=== PATIENT | male | born 1995 | race Caucasian/White ===

== ENCOUNTER 2016-12-24 19:22 | Emergency (ER) | payer BC ==
--- NOTE | 2016-12-24 21:01 | RAD ---
Indication: Left clavicle injury. 2 views of left clavicle demonstrates no fracture. No other bone or joint identified. IMPRESSION: No fracture of the left clavicle.
--- NOTE | 2016-12-24 21:02 | RAD ---
Indication: Left shoulder injury. 4 views of left shoulder demonstrates anterior inferior dislocation of left humeral head. IMPRESSION: Anterior inferior dislocation of left humeral head.
[2016-12-24] MEDS ORDERED: Midazolam concentrated* 5 MG/ML 1 ml VIAL ONE (21:06)
[2016-12-24] MEDS ORDERED: fentaNYL* 50 MCG/ML 2 ML VIAL (100 MCG VIAL) ONE (21:06)
[2016-12-24] MEDS ORDERED: Flumazenil* 0.1 MG/ML 5 ML MDV ONE (21:07)
[2016-12-24] MEDS ORDERED: fentaNYL* 50 MCG/ML 2 ML VIAL (100 MCG VIAL) IV SLOW PU ONE (21:09)
[2016-12-24] MEDS ORDERED: Midazolam* 1 MG/ML 10 ML VIAL (10 MG) IV ONE (21:11)
[2016-12-24] MEDS ORDERED: Midazolam* 1 MG/ML 10 ML VIAL (10 MG) ONE (21:13)
[2016-12-24] MEDS ORDERED: Naloxone* 0.4 MG/ML 1 ML VIAL ONE ×2 (21:13→21:15)
[2016-12-24] MEDS ORDERED: fentaNYL* 50 MCG/ML 5 ML VIAL (250 MCG VIAL) ONE (21:15)
--- NOTE | 2016-12-24 22:19 | ED ---
Upper Extremity Pain - HPI Summary HPI Summary: 21 male presents to ED with complaints of left shoulder pain, injury and deformity. States he thinks it is dislocated. Sustained when playing flag football and being ran into/tackled just [employer], today. Patient has not taken anything for pain. Admits to some numbness/tingling. No other injuries or complaints at this time. Has never injured shoulder in the past. No PMHx. - History of Current Complaint Chief Complaint: EDExtremityUpper Stated Complaint: LT SHOULDER INJURY Time Seen by Provider: 12/24/16 20:33 Hx Obtained From: Patient Mechanism Of Injury: Blunt Trauma, Twisted Onset/Duration: Started Hours Ago, Traumatic, Still Present, Worse Since Timing: Constant Severity Initially: Severe Severity Currently: Severe Pain Location: Shoulder - left Character: Sharp, Aching Aggravating Factor(s): Movement Alleviating Factor(s): Nothing, Rest Associated Signs & Symptoms: Positive: Numbness/Tingling, Other - obvious deformity Related History: Dominant Hand Right - Allergies/Home Medications Allergies/Adverse Reactions: Allergies Allergy/AdvReac Type Severity Reaction Status Date / Time No Known Allergies Allergy Verified 12/24/16 19:49 Home Medications: Home Medications NK [No Home Medications Reported] 12/24/16 [History Confirmed 12/24/16] PMH/Surg Hx/FS Hx/Imm Hx Endocrine/Hematology History: Denies: Hx Diabetes Cardiovascular History: Denies: Hx Hypertension Respiratory History: Denies: Hx Asthma - Surgical History Surgery Procedure, Year, and Place: none - Immunization History Immunizations Up to Date: Yes Infectious Disease History: No Infectious Disease History: Denies: Traveled Outside the [place] in Last 30 Days - Family History Known Family History: Positive: None - Social History Alcohol Use: Weekly Substance Use Type: Reports: None Smoking Status (MU): Never Smoked Tobacco Review of Systems Constitutional: Negative Cardiovascular: Negative Respiratory: Negative Positive: Arthralgia, Myalgia, Decreased ROM - left shoulder Skin: Negative Positive: Paresthesia All Other Systems Reviewed And Are Negative: Yes Physical Exam Triage Information Reviewed: Yes Vital Signs On Initial Exam: Initial Vitals Temp Pulse Resp BP Pulse Ox 98.7 F 84 18 155/84 95 12/24/16 19:28 12/24/16 19:28 12/24/16 19:28 12/24/16 19:28 12/24/16 19:28 slightly elevated BP however patient in significant pain, decreased throughout stay after procedure Vital Signs Reviewed: Yes Appearance: Positive: Well-Appearing, Well-Nourished, Pain Distress - severe Skin: Positive: Warm, Skin Color Reflects Adequate Perfusion, Dry, Cold - slightly colder left hand when compared to right, Pale - left hand however strong radial pulse, Other - no significant sweling or ecchymosis noted. obvious deformity left shoulder. Negative: Erythema @ Head/Face: Positive: Normal Head/Face Inspection Eyes: Positive: Conjunctiva Clear ENT: Positive: Normal ENT inspection, Hearing grossly normal, Pharynx normal, TMs normal Neck: Positive: Supple, Nontender Respiratory/Lung Sounds: Positive: Clear to Auscultation, Breath Sounds Present. Negative: Rales, Rhonchi, Wheezes Cardiovascular: Positive: Normal, RRR, Pulses are Symmetrical in both Upper and Lower Extremities - 2+ radial, b/l, normal cap refill. Negative: Murmur, Rub Abdomen Description: Positive: Nontender, Soft Bowel Sounds: Positive: Present Musculoskeletal: Positive: Limited @ - left UE, Interruption @ - left shoulder, Abnormal @ - left shoulder, Pain @, Other - obvious deformity, dislocation left shoulder, pain on palpation of left distal clavicle. Negative: Edema Left Neurological: Positive: Normal, Sensory/Motor Intact, Alert, Oriented to Person Place, Time, CN Intact II-III, Reflexes Intact, NV Bundle Intact Distally, Normal Gait - [place] Coma Scale Coma Scale Total: 15 Procedures - Joint Reduction Joint Reduction Site: shoulder (L) Conscious Sedation: Yes Reduction Attempts: 1 - by Dr Contreras Pre-Procedure NV Exam: Yes Post Joint Reduction Film: no fracture seen Diagnostics - Vital Signs Vital Signs Temp Pulse Resp BP Pulse Ox 12/24/16 22:00 100 19 100 12/24/16 21:55 140 16 134/58 81 12/24/16 21:50 91 18 100 12/24/16 21:45 92 19 133/69 100 12/24/16 21:40 98 20 133/67 100 12/24/16 21:35 93 14 128/66 98 12/24/16 21:30 99 20 135/76 100 12/24/16 21:26 16 12/24/16 21:25 95 19 137/66 100 10/16/17 21:24 94 23 134/76 100 12/24/16 21:17 97 100 12/24/16 21:15 140/48 12/24/16 19:35 99 F 91 19 127/63 100 12/24/16 19:28 98.7 F 84 18 155/84 95 - Laboratory Lab Statement: Any lab studies that have been ordered have been reviewed, and results considered in the medical decision making process. - Radiology left shoulder Xray Interpretation: Positive (See Comments) - anterior inferior dislocation of left humeral head left clavicle Xray Interpretation: No Acute Changes - no fracture of clavicle is seen Radiology Interpretation Completed By: Radiologist post reduction left shoulder Xray Interpretation: Positive (See Comments) - status post external reduction. bones are normal aligmnment, this is a hill-sachs fracture present Radiology Interpretation Completed By: Radiologist Course/Dx - Course Course Of Treatment: xrays obtained showing dislocation of left shoulder. Dr Contreras orthopedist 9:30pm preformed mild conscious sedation and reduction of left shoulder without complication. Reduced, post reduction xray obtained and showed successful reduction however hill-sachs fracture was noted. patient was placed in sling. observed after sedation. normal vitals throughout procedure. Pain medication at home, follow up with Emery tomorrow. Aware of worsening signs and symptoms to watch out for, return if occur. Rest and no physical activity/use of left shoulder. Patient agrees and understands plan. Tolerated procedure well. - Diagnoses Provider Diagnoses: Dislocation of left shoulder joint, Hill-Sachs fracture of left humerus - Physician Notifications Discussed Care of Patient With: Dr Contreras Time Discussed With Above Provider: 21:30 Instructed by Provider To: MD Will See In ED - and follow up call for appointment Discharge - Discharge Plan Condition: Stable Disposition: HOME Patient Education Materials: Shoulder Dislocation (ED) [facility] - Jill Land MD [Medical Doctor] - Additional Instructions: Keep shoulder resting in sling. Take Advil for pain and inflammation. Ice. Do not participate in physical activity until cleared by ortho. Follow up with Ortho, call and make an appointment. Any new or worsening signs/symptoms please seek medical attention promptly.
[2016-12-24 23:03] VITALS: BP 147/72
--- NOTE | 2016-12-25 02:30 | CONS ---
CONSULTATION REPORT: DATE OF CONSULT: 12/24/16 - EMERGENCY DEPT CONSULTING SERVICE: Orthopedics. REQUESTING SERVICE: ER. CHIEF COMPLAINT: Left shoulder pain. HISTORY OF PRESENT ILLNESS: Valeriano is a healthy 21-year-old right hand dominant senior at [employer]. He was playing flag football this afternoon when his left arm got extended backwards and externally rotated. He immediately had left shoulder pain and was brought into the emergency room. Denies any other injuries. Does note some tingling in his left hand. PAST MEDICAL HISTORY: Denies. PAST SURGICAL HISTORY: Denies. MEDICATIONS: No medications. ALLERGIES: No known drug allergies. PHYSICAL EXAM: He is well appearing and in no apparent distress. Nonlabored breathing. Normal mood and affect. Examination of the left upper extremity reveals skin is intact. No tenderness to palpation along the clavicle or the AC joint. Tenderness to palpation at the glenohumeral joint and obvious deformity. Sensation is intact to light touch in the axillary, radial, median, and ulnar nerve distributions, although he does have a bit of tingling in his fingertips. Palpable radial pulse. Positive EPL, OP and first NI. Painless range of motion of his elbow and wrist. IMAGING: Left shoulder x-rays reveal an anterior and inferior glenohumeral dislocation. No fractures are appreciated about the clavicle or shoulder. ASSESSMENT AND PLAN: Valeriano is a healthy 21-year-old right hand dominant male with a left shoulder glenohumeral joint dislocation. This is a first-time dislocation. I discussed the diagnosis and treatment options with him and after having this discussion, he decided he would like to move forward with a closed reduction. I explained the risks and benefits to him and received his informed written consent. Conscious sedation was provided by the emergency room and I close reduced the left glenohumeral joint with axial traction countertraction. There was a palpable clunk and relief of his pain. Afterwards , he was neurovascularly intact and had improved sensation in the fingertips as well as being intact in the axillary nerve, radial, median, and ulnar nerves. Post-reduction x-rays will be obtained. He was placed into a sling and will remain in that until he follows up with one of my colleagues in Sports Medicine in the next 1 to 2 weeks. All of his questions were answered. [id number]/[facility] #: [id number] [facility]
--- NOTE | 2016-12-25 07:12 | RAD ---
INDICATION: Left shoulder dislocation. COMPARISON: Comparison is made with a prior x-ray study of the left shoulder of the same day. TECHNIQUE: 3 views of the left shoulder were obtained. FINDINGS: The patient is status post external reduction of the left shoulder. The bones are in normal alignment. There is a Hill-Sachs fracture present. No additional fracture is seen. Joint spaces appear maintained. IMPRESSION: STATUS POST EXTERNAL REDUCTION. THE BONES ARE NORMAL ALIGNMENT. THERE IS A HILL-SACHS FRACTURE PRESENT.
== END 2016-12-24 22:55 | disposition home or self-care (01) ==
LOC: ED 19:22
DX: S43.015A Anterior dislocation of left humerus, initial encounter (principal); S42.292A Other displaced fracture of upper end of left humerus, initial encounter for closed fracture; W50.0XXA Accidental hit or strike by another person, initial encounter; Y93.62 Activity, american flag or touch football; Y92.9 Unspecified place or not applicable
CPT/HCPCS: 23650; 96374; 96375; 99283; J2250; J2310; J3010

== ENCOUNTER 2017-04-19 17:18 | Emergency (ER) | payer BC ==
[2017-04-19] MEDS ORDERED: NS 0.9% 1000 ML* 1,000 ML IV ONE (17:50)
[2017-04-19] MEDS ORDERED: Morphine INJ* 2 MG/ML 1 ML CARPUJECT IV ONE ×2 (17:51→18:31)
[2017-04-19] MEDS ORDERED: Midazolam* 1 MG/ML 10 ML VIAL (10 MG) ONE (18:49)
[2017-04-19] MEDS ORDERED: fentaNYL* 50 MCG/ML 5 ML VIAL (250 MCG VIAL) ONE (18:50)
--- NOTE | 2017-04-19 18:51 | RAD ---
HISTORY: Left shoulder pain COMPARISONS: December 24, 2016 VIEWS: 2, frontal and lateral views of the left shoulder FINDINGS: BONE DENSITY: Normal. BONES: There is no displaced fracture. JOINTS: There is no arthropathy. ALIGNMENT: There is anterior-inferior dislocation of the humeral head with respect to the glenoid fossa. SOFT TISSUES: Unremarkable. OTHER FINDINGS: None. IMPRESSION: LEFT SHOULDER DISLOCATION
--- NOTE | 2017-04-19 20:06 | ED ---
Harpal Hinson Jennifer, scribed for Quinn Noe MD on 04/19/17 at 1749 . Upper Extremity Pain - HPI Summary HPI Summary: The patient is a 22 year old male who presents to the ED with left shoulder pain after playing basketball about 40 minutes ago. The patient has had multiple injuries to the left shoulder in the past and says it feels like the time he dislocated his shoulder. He also complains of some numbness in his left fingers. - History of Current Complaint Chief Complaint: EDExtremityUpper Stated Complaint: LT SHOULDER INJURY Hx Obtained From: Patient Mechanism Of Injury: Other - Playing basketball Onset/Duration: Started Minutes Ago - 40 minutes ago Timing: Constant Severity Initially: Moderate Severity Currently: Moderate Pain Location: Shoulder Aggravating Factor(s): Movement Alleviating Factor(s): Nothing Related History: Similar Episode/Dx As - Allergies/Home Medications Allergies/Adverse Reactions: Allergies Allergy/AdvReac Type Severity Reaction Status Date / Time No Known Allergies Allergy Verified 12/24/16 19:49 PMH/Surg Hx/FS Hx/Imm Hx Endocrine/Hematology History: Denies: Hx Diabetes Cardiovascular History: Denies: Hx Hypertension Respiratory History: Denies: Hx Asthma - Surgical History Surgery Procedure, Year, and Place: none Infectious Disease History: No Infectious Disease History: Denies: Traveled Outside the [place] in Last 30 Days - Family History Known Family History: Negative: Renal Disease - Social History Alcohol Use: Weekly Substance Use Type: Reports: None Smoking Status (MU): Never Smoked Tobacco Review of Systems Negative: Fever Positive: Other - Shoulder pain Positive: Numbness - Left fingers All Other Systems Reviewed And Are Negative: Yes Physical Exam - Summary Physical Exam Summary: Appearance: Well-appearing, Well-nourished, no obvious deformity Skin: Warm, Dry, No rash Eyes: Normal, PERRL, EOMI, sclera anicteric ENT: Normal Neck: Supple, nontender Respiratory: Clear to auscultation Cardiovascular: S1, S2, no murmur, no rub, no gallop Abdomen: Soft, nontender, no organomegaly Bowel sounds: Present Musculoskeletal: Normal, Strength/ROM Intact, no edema, pulses symmetrical Extremities: flexion and extension of fingers, refuses to move arm at all, some numbness in radial distribution on the skin. Neurological: Normal, A&Ox3, cranial nerves II-XII WNL, follows commands, gait not tested, sensation intact to pin and light touch Psychiatric: affect normal, behavior appropriate, dressed appropriately, judgment intact Triage Information Reviewed: Yes Vital Signs On Initial Exam: Initial Vitals Temp Pulse Resp BP Pulse Ox 98.0 F 90 22 143/65 100 04/19/17 17:31 18 17:31 18 17:31 04/19/17 17:31 18 17:31 Vital Signs Reviewed: Yes Procedures - Procedure Summary Procedure Summary: Conscious sedation performed for left anterior shoulder dislocation. 150 micrograms total of Fentanyl and 7 mg of Versed were given. The Kocker method for reducing the shoulder was tolderated without difficulty. Post procedure neurovascular intact, wrist flexion and extension normal, interosseous muscles of fingers normal, strength intact. Diagnostics - Vital Signs Vital Signs Temp Pulse Resp BP Pulse Ox 04/19/17 17:31 98.0 F 90 22 143/65 100 - Laboratory Lab Statement: Any lab studies that have been ordered have been reviewed, and results considered in the medical decision making process. - Radiology Shoulder XR Xray Interpretation: Positive (See Comments) - LEFT SHOULDER DISLOCATION. Dr. Noe has reviewed this report. Radiology Interpretation Completed By: Radiologist Course/Dx - Course Assessment/Plan: The patient is a 22 year old male who presents to the ED with left shoulder pain after playing basketball about 40 minutes ago. In the ED course the patient was given IV fluids and Morphine. Shoulder XR showed LEFT SHOULDER DISLOCATION. The patient is diagnosed with left anterior shoulder dislocation. The patient tolerated Kocker method for reducing the shoulder without difficulty. The patient is instructed to follow up with Dr. Grace, orthopedics. - Diagnoses Provider Diagnoses: Anterior dislocation of left shoulder Discharge - Discharge Plan Condition: Stable Disposition: HOME [facility] Care [facility]] - Additional Instructions: RETURN TO THE EMERGENCY DEPARTMENT FOR CHANGING OR WORSENING SYMPTOMS. The documentation as recorded by the Harpal hernandez Jennifer accurately reflects the service I personally performed and the decisions made by , Quinn Noe MD.
[2017-04-19 20:33] VITALS: BP 122/82
--- NOTE | 2017-04-19 20:46 | RAD ---
HISTORY: Post reduction COMPARISONS: April 19, 2017 at 6:04 PM, December 24, 2016 VIEWS: 2, frontal and outlet views of the left shoulder FINDINGS: BONE DENSITY: Normal. BONES: There is a Hill-Sachs deformity of the humeral head. This is similar to the previous examination. JOINTS: There is no arthropathy. ALIGNMENT: There has been interval reduction of the glenohumeral dislocation. SOFT TISSUES: Unremarkable. OTHER FINDINGS: None. IMPRESSION: INTERVAL REDUCTION OF LEFT SHOULDER DISLOCATION
== END 2017-04-19 20:31 | disposition home or self-care (01) ==
LOC: ED 17:18
DX: S43.005A Unspecified dislocation of left shoulder joint, initial encounter (principal); X58.XXXA Exposure to other specified factors, initial encounter; Y93.67 Activity, basketball; Y92.9 Unspecified place or not applicable
CPT/HCPCS: 23650; 96360; 96374; 96376; 99283; J2250; J2270; J3010

== ENCOUNTER 2017-08-05 11:22 | Emergency (ER) | payer BC ==
[2017-08-05] MEDS ORDERED: Ketorolac INJ* 60 MG/2 ML VIAL ONE (11:29)
[2017-08-05] MEDS ORDERED: Ketorolac INJ* 60 MG/2 ML VIAL IM ONE (11:30)
--- NOTE | 2017-08-05 12:00 | RAD ---
HISTORY: Left shoulder pain COMPARISONS: April 19, 2012 VIEWS: 3, Frontal internal rotation, external rotation, and outlet views of the left shoulder FINDINGS: BONE DENSITY: Normal. BONES: There is no displaced fracture. JOINTS: There is no arthropathy. ALIGNMENT: There is anterior-inferior dislocation of the humeral head with respect to the glenoid fossa. SOFT TISSUES: Unremarkable. OTHER FINDINGS: None. IMPRESSION: LEFT SHOULDER DISLOCATION
--- NOTE | 2017-08-05 12:10 | ED ---
Ananda Hinson Angela, scribed for Sampson Sanchez MD on 08/05/17 at 1131 . Upper Extremity Pain - HPI Summary HPI Summary: This pt is a 22 y/o male presenting to [facility] via EMS c/o left shoulder pain s/p injury. Pt reports he was picking up furniture this morning and when he picked it up with his left arm he heard a pop in his left shoulder. Pt states he had his left shoulder dislocated twice before in the past. Pt was told to have surgery done if his shoulder became dislocated again. He notes he was not able to get surgery as he has been in school. NKDA. Denies any PMHx. - History of Current Complaint Stated Complaint: LT SHOULDER INJURY Hx Obtained From: Patient Mechanism Of Injury: Other - s/p picking up furniture Onset/Duration: Traumatic, Still Present Timing: Constant Severity Currently: Severe Pain Location: Shoulder - left Aggravating Factor(s): Movement Alleviating Factor(s): Rest Associated Signs & Symptoms: Negative: Swelling, Redness, Bruising, Fever, Weakness, Numbness/Tingling, Chest Pain, Back Pain, Neck Pain Related History: Similar Episode/Dx As - similar episode twice before - Allergies/Home Medications Allergies/Adverse Reactions: Allergies Allergy/AdvReac Type Severity Reaction Status Date / Time No Known Allergies Allergy Verified 12/24/16 19:49 PMH/Surg Hx/FS Hx/Imm Hx Endocrine/Hematology History: Denies: Hx Diabetes Cardiovascular History: Denies: Hx Hypertension Respiratory History: Denies: Hx Asthma - Surgical History Surgery Procedure, Year, and Place: none - Family History Known Family History: Negative: Renal Disease - Social History Alcohol Use: Weekly Substance Use Type: Reports: None Smoking Status (MU): Never Smoked Tobacco Review of Systems Negative: Fever Eyes: Negative ENT: Negative Cardiovascular: Negative Respiratory: Negative Musculoskeletal: Other - left shoulder pain Neurological: Negative All Other Systems Reviewed And Are Negative: Yes Physical Exam - Summary Physical Exam Summary: VITAL SIGNS: Reviewed. GENERAL: Patient is a well-developed and nourished male who is lying comfortable in the stretcher. Patient is not in any acute respiratory distress. HEAD AND FACE: No signs of trauma. No ecchymosis, hematomas or skull depressions. No sinus tenderness. EYES: PERRLA, EOMI x 2, No injected conjunctiva, no nystagmus. EARS: Hearing grossly intact. Ear canals and tympanic membranes are within normal limits. MOUTH: Oropharynx within normal limits. NECK: Supple, trachea is midline, no adenopathy, no JVD, no carotid bruit, no c- spine tenderness, neck with full ROM. CHEST: Symmetric, no tenderness at palpation LUNGS: Clear to auscultation bilaterally. No wheezing or crackles. CVS: Regular rate and rhythm, S1 and S2 present, no murmurs or gallops appreciated. ABDOMEN: Soft, non-tender. No signs of distention. No rebound no guarding, and no masses palpated. Bowel sounds are normal. EXTREMITIES: no edema, no cyanosis or clubbing. Deformity in the left shoulder. Pulses are good. Pt is neurovascular intact. NEURO: Alert and oriented x 3. No acute neurological deficits. Speech is normal and follows commands. SKIN: Dry and warm Triage Information Reviewed: Yes Vital Signs On Initial Exam: Initial Vitals Temp Pulse Resp BP Pulse Ox 98.2 F 85 16 129/76 98 08/05/17 11:25 08/05/17 11:25 08/05/17 11:25 08/05/17 11:25 08/05/17 11:25 Vital Signs Reviewed: Yes Procedures - Joint Reduction Joint Reduction Site: shoulder (L) Conscious Sedation: No Reduction Attempts: 1 - successful Pre-Procedure NV Exam: Yes - pre and post procedure neurovascular intact Post Joint Reduction Film: joint reduced Diagnostics - Vital Signs Vital Signs Temp Pulse Resp BP Pulse Ox 08/05/17 11:25 98.2 F 85 16 129/76 98 - Laboratory Lab Statement: Any lab studies that have been ordered have been reviewed, and results considered in the medical decision making process. - Radiology Left shoulder XR Xray Interpretation: Positive (See Comments) - IMPRESSION: Left shoulder dislocation. Dr. Sanchez has reviewed this radiology report. Radiology Interpretation Completed By: Radiologist Re-Evaluation - Re-Evaluation First Eval Re-Evaluation Time: 11:50 Comment: Joint reduction performed. Course/Dx - Course Assessment/Plan: This patient is a 22-year-old male who presents to the emergency room with left shoulder pain. X-ray of the left shoulder shows a positive dislocation. The patient was given Toradol 60 mg IM. We applied traction and we successively reduced the dislocation. Postreduction x-ray impression: Dislocation was reduced. The patient was placed in a shoulder immobilizer. Patient will be discharged home with follow-up with primary care physician and orthopedics. He reports that he will go back home and he will follow up with an orthopedic home. Patient is hemodynamically stable. - Diagnoses Differential Diagnosis/HQI/PQRI: Positive: Bursitis, Fracture (Open), Strain, Sprain Provider Diagnoses: Shoulder dislocation Discharge - Sign-Out/Discharge Documenting (check all that apply): Discharge/Admit/Transfer - Discharge Plan Condition: Stable Disposition: HOME Patient Education Materials: Shoulder Dislocation (ED) Referrals: [facility] [Primary Care Provider] - Jill Land MD [Medical Doctor] - Additional Instructions: Please follow up with orthopedics, Dr. Land. Follow up with your primary care provider. RETURN TO THE ED FOR ANY NEW OR WORSENING SYMPTOMS. - Billing Disposition and Condition Condition: STABLE Disposition: HOME The documentation as recorded by the Ananda hernandez Angela accurately reflects the service I personally performed and the decisions made by , Sampson Sanchez MD.
[2017-08-05 12:15] VITALS: BP 153/73
--- NOTE | 2017-08-05 12:17 | RAD ---
HISTORY: Status post reduction COMPARISONS: August 05, 2017 at 11:39 AM VIEWS: 1, single frontal view of the left shoulder in internal rotation FINDINGS: BONE DENSITY: Normal. BONES: There is no displaced fracture. JOINTS: There is no arthropathy. ALIGNMENT: On this single projection, there has been interval reduction of the glenohumeral dislocation. SOFT TISSUES: Unremarkable. OTHER FINDINGS: None. IMPRESSION: LIMITED SINGLE FRONTAL PROJECTION OF THE LEFT SHOULDER DEMONSTRATE INTERVAL REDUCTION OF THE LEFT SHOULDER DISLOCATION
== END 2017-08-05 12:13 | disposition home or self-care (01) ==
LOC: ED 11:22
DX: S43.015A Anterior dislocation of left humerus, initial encounter (principal); X50.0XXA Overexertion from strenuous movement or load, initial encounter; Y93.89 Activity, other specified; Y92.9 Unspecified place or not applicable
CPT/HCPCS: 23650; 96372; 99282; J1885